=== PATIENT | female | born 1995 | race Caucasian/White ===

== ENCOUNTER 2018-02-12 15:49 | Observation (INO) ==
[2018-02-12 16:25] LABS: Hematocrit 40.8 % (37.0-47.0); Hemoglobin 13.3 gm/dL (12.5-16.0); Mean Cell Volume 90.3 fl (78-100); Mean Corpuscular Hemoglobin 29.4 pg (27-31); Mean Corpuscular Hgb Conc 32.6 g/dl (32-36); Mean Platelet Volume 9.6 fl (8-12.5); Neutrophil # 5.1 K/mm3 (1.3-6.0); Neutrophil % 58.3 % (42-75.0); Platelet Count 282 K/mm3 (150-450); Red Blood Count 4.52 M/mm3 (4.2-5.4); Red Cell Distribution Width 14.4 % (11.5-14.0); White Blood Count 8.7 K/mm3 (4.0-10.5)
[2018-02-12 16:38] LABS: Albumin * 3.8 gm/dl (3.4-5.0); BUN/Creatinine Ratio 9.9 (9.0-21.6); Bilirubin, Total 0.3 mg/dL (0.0-1.1); CRP 1.2 mg/dL (0.0-0.9); Calcium * 9.2 mg/dL (7.9-10.9); Carbon Dioxide 25.6 mmol/L (24-32.6); Potassium 3.6 mmol/L (3.4-4.6); Total Protein 7.8 gm/dL (6.2-8.2)
[2018-02-12 16:59] LABS: Urine Bilirubin Negative (NEGATIVE); Urine Blood 25 /ul (NEGATIVE); Urine Ketone Negative (NEGATIVE); Urine Nitrite Negative (NEGATIVE); Urine Protein Negative (NEGATIVE); Urine Urobilinogen Normal (NORMAL); Urine pH 6.5 pH (5.0-7.0)
--- NOTE | 2018-02-12 17:03 | ERNOTE ---
Abdominal HPI - Narrative Date of Service: 02/12/18 - General Chief Complaint: Abdominal Pain Time Seen by Provider: 02/12/18 16:01 Source: patient Exam Limitations: no limitations - Immun/Allergies/Home Medications Immunizatons: IMMUNIZATION HX Immunizations Up to Date Yes History of Influenza Vaccine No Hx Pneumococcal Vaccination No Allergies/Adverse Reactions: Allergies Penicillins Allergy (Verified 02/12/18 16:06) Home Medications: HOME MEDICATIONS Levonorgestrel [Mirena] 1 ea IY NOW 02/12/18 [Last Taken Unknown] - Pain Score Pain Score #1 Pain Score: 4 Abdominal Pain Onset Location: RUQ Pain Radiation: no radiation - History of Present Illness Narrative: The patient is a 22 year old female who presents for RUQ pain which has been present for 2 days. There are associated symptoms of nausea. The patient reports RUQ pain, 4/10. There are no alleviating factors. There are aggravating factors following eating. Previous treatments have included: none. The past medical history includes: hypothyroid. The social history is negative. The patient has had no ill contacts. Timing: constant Quality: sharpness Activities at Onset: none Modifying Factors - (Worsens): Present: other - bending forward or abdominal pressure Associated Symptoms: Present: nausea. Absent: diarrhea-gross blood, diarrhea- mucous, fatigue, vomiting, loss of appetite Review of Systems - Review of Systems Constitutional: Present: no symptoms reported. Absent: recent illness, fever, fatigue EYE: Present: no symptoms reported ENT: Present: no symptoms reported. Absent: ear pain, nasal drainage, sore throat Respiratory: Present: no symptoms reported. Absent: shortness of breath, cough Cardiology: Present: no symptoms reported. Absent: chest pain Gastrointestinal/Abdominal: Present: nausea, diarrhea, abdominal pain. Absent: vomiting, eating less, drinking less Genitourinary: Present: no symptoms reported. Absent: dysuria, decreased urinary output, discharge Musculoskeletal: Present: no symptoms reported. Absent: back pain Skin: Present: no symptoms reported. Absent: rash Neurological: Present: no symptoms reported Endocrine: Present: no symptoms reported Hematologic/Lymphatic: Present: no symptoms reported Psych: Present: no symptoms reported All Other Systems: All systems neg except as marked Medical History (Last Reviewed 02/12/18 @ 17:06 by TIAGO Chapman) Hypothyroid Surgical History: Surgical History (Last Reviewed 02/12/18 @ 17:06 by TIAGO Chapman) ear tubes Family History: Family History (Last Reviewed 02/12/18 @ 17:06 by TIAGO Chapman) Other No pertinent family history Social History: Preferred Language Yoruba Smoking Status Never smoker Alcohol Use occasionally Drug Use none No Social History Section defined Physical Exam - Physical Exam General Appearance: Present: wd/wn, alert, no apparent distress Head Exam: Present: normal inspection Respiratory: Present: no respiratory distress, normal breath sounds, no accessory muscle use, chest nontender, lungs clear Cardiovascular/Chest: Present: regular rate, rhythm, no murmur Gastrointestinal/Abdominal: Present: normal bowel sounds, nondistended, soft, no organomegaly, tenderness - RUQ, guarding, rebound, McBurney sign Neurological Exam: Present: alert, oriented, normal mood/affect Skin Exam: Present: normal color, warm/dry Progress - Date and Time Seen: Date and Time: 02/12/18 Discussed case with , will present to evaluate patient for plan of care. present and plan for cholecystectomy this evening. - Results and Orders Patient's Lab Results:: I have reviewed the patient's lab results. Results and Orders: Will follow up with patient regarding urine culture to initiate treatment since patient asymptomatic, discussed this with patient and agrees to plan. - Vital Signs Patient's Vital Signs:: I have reviewed the patient's vital signs. Vital Signs: Vital Signs 02/12/18 15:50 Temperature 36.4 C Pulse Rate 66 Respiratory Rate 16 Blood Pressure 126/74 O2 Sat by Pulse Oximetry 98 - X-Ray X-Ray #1 X-Ray: abdomen Interpretation: Reviewed by il X-ray Comments: X-RAY REPORT ~[id number] RAD/Abdomen Flat W/ Upright *~ Exam Date: 02/12/2018 16:05 Ordering Physician: Flori ORDOÑEZ Abdomen Flat W/ Upright * DATE: 02/12/2018 5:50 PM INDICATION: Abdominal Pain. COMPARISON: None. TECHNIQUE: Supine and upright views of the abdomen were obtained. FINDINGS: Abdomen: Nonobstructive bowel gas pattern. No free air. There is an intrauterine device in the pelvis. Lower Chest: The visualized lower chest demonstrates no acute abnormality. Skeletal Structures and Soft Tissues: No acute osseous abnormality. Normal soft tissues. IMPRESSION: Nonobstructive bowel gas pattern. Electronically signed by Tonia Boykin D.O.. - CT/Ultrasound CT/Ultrasound Narrative: X-RAY REPORT ~[id number] ULT/US Abd Single Organ (Limited)~ Exam Date: 02/12/2018 17:03 Ordering Physician: Flori Zepeda NURSING HOME AIDE History: Right upper quadrant pain, nausea and vomiting for one day Technique: Multiple transabdominal grayscale, color ultrasound images of the abdomen limited to the gallbladder and the common ducts were obtained. Comparisons: None available. Findings: ULTRASOUND ABDOMEN LIMITED: Gallbladder: Gallbladder wall thickness is 0.5 mm. Cholelithiasis. The gallbladder wall appears thickened and ill-defined. There is some pericholecystic fluid. The sonographic Estrada's sign was elicited. Common hepatic duct: 4 mm Common bile duct: 4 mm Distal common bile duct: 4 mm The visualized surrounding structures are unremarkable. IMPRESSION: Findings suggestive of acute cholecystitis with gallbladder wall thickening, pericholecystic fluid, cholelithiasis and a positive sonographic Estrada sign. Electronically signed by Tonia Boykin D.O.. - Progress/Reassessment Chief Complaint: Abdominal Pain Departure Clinical Impression: Cholecystitis - Departure Disposition: Still a patient Condition: Good
[2018-02-12 17:12] LABS: Urine Appearance Slightly Cloudy (CLEAR); Urine Color Yellow
[2018-02-12 17:13] LABS: Urine Bacteria TRACE; Urine RBC TRACE /hpf (0-5)
--- NOTE | 2018-02-12 18:42 | HP ---
Chief Complaint - Chief Complaint Date of Service: 02/12/18 Time of Service: 18:36 Chief Complaint: Right upper quadrant pain History of Present Illness: She complains of right upper quadrant pain. This pain began yesterday. She tried making herself throw up today, but did not find relief. She tried eating to cheeseburgers at noon today, but that did not help her pain. She has also had acid reflux. She has a 4-month-old baby. She has pain in the right upper quadrant. Medical History (Last Reviewed 02/12/18 @ 17:06 by TIAGO Chapman) Hypothyroid Surgical History: Surgical History (Last Reviewed 02/12/18 @ 17:06 by TIAGO Chapman) ear tubes Family History: Family History (Last Reviewed 02/12/18 @ 17:06 by TIAGO Chapman) Other No pertinent family history Social History: Preferred Language [place] Smoking Status Never smoker Alcohol Use occasionally Drug Use none No Social History Section defined Review Of Systems (GEN) - Review of Systems Generalized/Overall Review: Present: Malaise EENTM: Present: No Symptoms Reported Respiratory: Present: No Symptoms Reported Cardiac: Present: No Symptoms Reported Abdominal: Present: Nausea, Vomiting, Abdominal Pain Genitourinary: Present: No Symptoms Reported Musculoskeletal: Present: No Symptoms Reported Neurological: Present: No Symptoms Reported Skin: Present: No Symptoms Reported Endocrine: Present: Other - Breast-feeding Immunizations: IMMUNIZATION HX Immunizations Up to Date Yes History of Influenza Vaccine No Hx Pneumococcal Vaccination No Allergies/Adverse Reactions: Allergies Allergy/AdvReac Type Severity Reaction Status Date / Time Penicillins Allergy Verified 02/12/18 16:06 Home Medications: HOME MEDICATIONS Levonorgestrel [Mirena] 1 ea IY NOW 02/12/18 [Last Taken Unknown] Exam - Exam Vital Signs: Vital Signs - Last Taken Temp 36.4 C 02/12/18 15:50 Pulse 66 02/12/18 15:50 Resp 16 02/12/18 15:50 BP 126/74 02/12/18 15:50 Pulse Ox 98 02/12/18 15:50 Constitutional: Present: Alert, Oriented x3, Cooperative Breasts: Present: Other - Breast-feeding Respiratory: Present: lungs clear, no accessory muscle use Cardiovascular/Chest: Present: normal peripheral pulses, regular rate, rhythm Abdomen: Present: Normal bowel sounds, obese, tender, guarding, positive Estrada sign Extremity: Present: normal range of motion Skin Exam: Present: normal color Neurologic: Present: rack washer II-XII nml as tested Appearance: Present: appropriate appearance Eye contact: Present: cooperative Thoughts: Present: normal thought pattern Diagnostic Studies: Abnormal Lab Results 18 1818 1818 Range/Units 16:18 16:18 16:45 RDW 14.4 H (11.5-14.0) % Anion Gap 15.0 H (6.8-13.8) mmol/L C-Reactive Prot, Quant 1.2 H (0.0-0.9) mg/dL Urine Blood 25 H (NEGATIVE) /ul Ur Leukocyte Esterase 75 H (NEGATIVE) /ul Urine WBC 10-25 H (0-5) /hpf Ur Epithelial Cells 5-10 H (0-5) /hpf Laboratory Results WBC 8.7 K/mm3 (4.0-10.5) 02/12/18 16:18 RBC 4.52 M/mm3 (4.2-5.4) 02/12/18 16:18 Hgb 13.3 gm/dL (12.5-16.0) 02/12/18 16:18 Hct 40.8 % (37.0-47.0) 02/12/18 16:18 MCV 90.3 fl (78-100) 02/12/18 16:18 MCH 29.4 pg (27-31) 02/12/18 16:18 MCHC 32.6 g/dl (32-36) 02/12/18 16:18 RDW 14.4 % (11.5-14.0) H 18 16:18 Plt Count 282 K/mm3 (150-450) 18 16:18 MPV 9.6 fl (8-12.5) 18 16:18 Immature Gran % (Auto) 0.10 % (0.001-0.429) 18 16:18 Immature Gran # (Auto) 0.01 K/mm3 (0.000-0.0310) 02/12/18 16:18 Neutrophils % 58.3 % (42-75.0) 18 16:18 Lymphocytes % 31.0 % (20-51) 02/12/18 16:18 Monocytes % 8.3 % (0.0-9) 02/12/18 16:18 Eosinophils % 1.8 % (0.0-3.0) 02/12/18 16:18 Basophils % 0.5 % (0.0-1.0) 02/12/18 16:18 Nucleated RBC % 0.0 k/mm3 (0-1) 02/12/18 16:18 Neutrophils # 5.1 K/mm3 (1.3-6.0) 02/12/18 16:18 Lymphocytes # 2.70 k/mm3 (1.5-3.5) 02/12/18 16:18 Monocytes # 0.7 k/mm3 (0.0-1.0) 02/12/18 16:18 Eosinophils # 0.2 k/mm3 (0.0-0.7) 02/12/18 16:18 Absolute Basophils 0.0 k/mm3 (0.0-0.1) 02/12/18 16:18 Sodium 142 mmol/L (132-142) 02/12/18 16:18 Plasma Sodium 142 mmol/L (130-142) 02/12/18 16:18 Potassium 3.6 mmol/L (3.4-4.6) 02/12/18 16:18 Chloride 105 mmol/L (97-106) 02/12/18 16:18 Carbon Dioxide 25.6 mmol/L (24-32.6) 02/12/18 16:18 Anion Gap 15.0 mmol/L (6.8-13.8) H 02/12/18 16:18 BUN 11 mg/dL (3-23) 02/12/18 16:18 Creatinine 1.11 mg/dL (0.4-1.4) 02/12/18 16:18 Est GFR (Non-Af Amer) 65 mL/min (60-130) 02/12/18 16:18 BUN/Creatinine Ratio 9.9 (9.0-21.6) 02/12/18 16:18 Random Glucose 102 mg/dL (70-110) 02/12/18 16:18 Calcium 9.2 mg/dL (7.9-10.9) 02/12/18 16:18 Calcium Adj for Albumin 9.0 mg/dL (8.4-10.2) 18 16:18 Total Bilirubin 0.3 mg/dL (0.0-1.1) 18 16:18 AST 32 U/L (0-48) 18 16:18 ALT 48 U/L (19-67) 02/12/18 16:18 Alkaline Phosphatase 75 U/L (50-170) 02/12/18 16:18 C-Reactive Prot, Quant 1.2 mg/dL (0.0-0.9) H 02/12/18 16:18 Total Protein 7.8 gm/dL (6.2-8.2) 02/12/18 16:18 Albumin 3.8 gm/dl (3.4-5.0) 02/12/18 16:18 Amylase 63 U/L (25-115) 02/12/18 16:18 Lipase 140 U/L (73-393) 02/12/18 16:18 Serum HCG, Qual Negative (NEGATIVE) 02/12/18 16:18 Urine Color Yellow 02/12/18 16:45 Urine Appearance Slightly cloudy (CLEAR) 02/12/18 16:45 Urine pH 6.5 pH (5.0-7.0) 02/12/18 16:45 Ur Specific [place] 1.020 SP.GR. (1.005-1.010) 02/12/18 16:45 Urine Protein Negative mg/dL (NEGATIVE) 02/12/18 16:45 Urine Glucose (UA) Negative mg/dL (NEGATIVE) 02/12/18 16:45 Urine Ketones Negative mg/dL (NEGATIVE) 02/12/18 16:45 Urine Blood 25 /ul (NEGATIVE) H 18 16:45 Urine Nitrate Negative (NEGATIVE) 02/12/18 16:45 Urine Bilirubin Negative mg/dl (NEGATIVE) 02/12/18 16:45 Urine Urobilinogen Normal EU/dl (NORMAL) 02/12/18 16:45 Ur Leukocyte Esterase 75 /ul (NEGATIVE) H 18 16:45 Urine RBC Trace /hpf (0-5) 1218 16:45 Urine WBC 10-25 /hpf (0-5) H 02/12/18 16:45 Ur Epithelial Cells 5-10 /hpf (0-5) H 02/12/18 16:45 Urine Bacteria Trace (NONE) 02/12/18 16:45 Urine Culture Comments Culture to follow 12 16:45 Assessment/Plan - Narrative Narrative: We'll plan to go to the OR for laparoscopic possible open appendectomy. Risks and benefits of the procedure were discussed with the patient including bleeding, infection, damage to the common bile duct, bile leak, and need for reoperation. She voices understanding and would like to proceed. She is also breast-feeding. We discussed that there is a slight risk of transfer of medication from surgery to the . The patient states that once she breast beats tonight the baby will likely sleep all night. The baby has had formula couple of times. The patient does not pump. She does not have any stored breastmilk. Thank you for allow me to participate in the care of your patient. - Assessment/Plan (1) Acute cholecystitis Assessment: We will plan to go to the operating room for acute cholecystitis. She has a positive Estrada's sign. As an elevated CRP. Her gallbladder wall is thickened, she has cholelithiasis, and pericholecystic fluid. Problem: Acute (2) Breast feeding status of mother Problem: Acute
--- NOTE | 2018-02-12 18:47 | OR ---
Operative Report - Dictated Report Narrative: Procedure Date: 02/12/18 Procedure: laparoscopic cholecystectomy Pre-procedure diagnosis: Acute Cholecystitis Post-procedure diagnosis: same Surgeon: Dr. Martha Barron Anesthesia: general Indication for procedure: Sharon is a pleasant 22 year old female who was found to have acute seymour, on US. She also has a positive Estrada's sign. Description of procedure: After appropriate informed consent was obtained patient was taken to the operating room, placed in the supine position. General anesthesia was achieved. The patient was prepped and draped in the usual sterile fashion. A 5 mm periumbilical incision was made, hemostat was used to dissect down to the fascia. A Veress needle was inserted, a saline drop test was performed which was satisfactory. The abdomen was insufflated to 15 mmHg. A 5mm blunt trocar was placed at the umbilicus. The camera was inserted, there was no evidence of a trocar injury. An 11 mm trocar was placed in subxiphoid position. A 5 mm trocar was placed in the right upper quadrant. An additional 5 mm trocar was placed in the right upper lateral quadrant The patient was placed in a head up, rotated left position, to facilitate exposure. The gallbladder was identified, and was elevated over the liver. It was consistent with acute seymour. The cystic duct was identified and was dissected out, this was directly entering the gallbladder. The cystic artery was not identified, it was clipped along with the cystic duct. There were 3 clips placed on the stay side of the cystic duct, 1 clip was placed on the gallbladder side, the cystic duct was then transected. The gallbladder was then removed from the liver bed using electrocautery. As this was done a small hole was made and bile was spilled, no stones were spilled. The gallbladder was placed in an Endo Catch bag, and removed through the subxiphoid port. The liver was inspected and hemostasis was achieved. The area over the liver was irrigated until clear. The remainder of the abdomen was inspected and was satisfactory. The xiphoid trocar site was closed with an 0 Vicryl suture using a Maxim-Odell device. The abdomen was desufflated. Local anesthetic was injected. The incisions were closed with inverted interrupted 4-0 Monocryl sutures. Mastisol and Steri- Strips were applied. The patient tolerated the procedure well and was transported to the PACU in satisfactory condition. Estimated blood loss: minimal Complications: none Specimens to pathology: Gallbladder Disposition: Pt will be admitted for observation
[2018-02-12] MEDS ORDERED: metroNIDAZOLE/SODIUM CHLORIDE 500 MG/100 ML BAG IV ONE (18:55)
--- NOTE | 2018-02-12 18:59 | ANES ---
Anesthesia Pre Procedure Eval Vitals/Labs: Last Vital Signs Temp 36.4 C 02/12/18 15:50 Pulse 66 02/12/18 15:50 Resp 16 02/12/18 15:50 BP 126/74 02/12/18 15:50 Pulse Ox 98 02/12/18 15:50 HOME MEDICATIONS Levonorgestrel [Mirena] 1 ea IY NOW 02/12/18 [Last Taken Unknown] Allergies/Adverse Reactions: Allergies Allergy/AdvReac Type Severity Reaction Status Date / Time Penicillins Allergy Verified 02/12/18 16:06 - Planned Procedure Planned Procedure: LAPAROSCOPIC CHOLECYSTECTOMY Medication List Reviewed:: Yes Allergies Verified: Yes Medical History (Last Updated 02/12/18 @ 18:58 by Niall Wise CRNA) Hypothyroid Morbid obesity Surgical History (Last Reviewed 02/12/18 @ 18:58 by Niall Wise CRNA) ear tubes Family History (Last Reviewed 02/12/18 @ 18:58 by Niall Wise CRNA) Grandmother No pertinent family history Other Ovarian cancer - Airway/Neck/Teeth Within Normal Limits:: Yes Teeth Condition: intact Mallampatti Score: 3 Thyromental (T-M) distance: > 6 cm Mandibulo Hyoid distance: > 3 cm - Respiratory Respiratory Physical: lungs clear Smoking Status: Never smoker Discussed smoking cessation including day of surgery: No Sleep Apnea currently treated: No Sleep Apnea by current assessment: Yes Discussed Risks/Treatment of MIRIAM: Yes - Cardiovascular Tolerate Activity: Good Heart Sounds: S1 & S2 - Anesthesia Assessment and Plan ASA Class: PS, II, E Anesthesia Type Plan: General ET Planned difficult intubation/equipment available: Yes
[2018-02-12] MEDS ORDERED: LEVOFLOXACIN IN DEXTROSE 5 % 500 MG/100 ML BAG IV SCH (19:00)
[2018-02-12] MEDS ORDERED: RINGER'S SOLUTION,LACTATED 1,000 ML IV STA (19:15)
[2018-02-12] MEDS ORDERED: BUPIVACAINE HCL/PF 30 ML VIAL IJ ONE (19:50)
[2018-02-12] MEDS ORDERED: ACETAMINOPHEN 325 MG TABLET PO PRN (20:47)
[2018-02-12] MEDS ORDERED: ONDANSETRON HCL/PF 2 MG/ML VIAL IV PRN (20:47)
[2018-02-12] MEDS ORDERED: POTASSIUM CHLORIDE 20 MEQ in DEXTROSE 5%-0.5 NORMAL SALINE 990 ML IV SCH (21:00)
--- NOTE | 2018-02-12 21:04 | ANES ---
Post Anesthesia Assessment - Vital Signs Vitals: Last Vital Signs Temp 37.8 C 02/12/18 19:08 Pulse 72 02/12/18 19:08 Resp 18 02/12/18 19:08 BP 139/95 H 02/12/18 19:08 Pulse Ox 98 02/12/18 19:08 Airway Patency: Normal - Mental Status Level Of Consciousness: Awake - Pain Level Pain Score: 0 - N/V Assessment Nausea/Vomiting Presence: None Dehydration:: No
--- NOTE | 2018-02-12 21:04 | ANES ---
Post Anesthesia Discharge - Transfer of Care Transfer of Care handoff given to nurse: Yes - Discharge from PACU Discharge from PACU when meets criteria: Yes - Discharge to ASU Discharge to ASU-no complications/pt stable: Yes
[2018-02-12] MEDS: HYDROcodone/ACETAMINOPHEN 1 EACH TABLET PO PRN (22:36)
--- NOTE | 2018-02-13 13:21 | DS ---
(1) Acute cholecystitis Problem: Acute (2) Breast feeding status of mother Problem: Acute Description of Stay: Sharon is a very pleasant 22 yo female, who came in through the ER last night. She had RUQ pain, and an US that showed acute cholecystitis. She was taken to the operating room for laparoscopic Cholestectomy. This was uneventful. She did well over 90 pain is controlled. She has tolerated a diet. She has breast- feeding and she is currently used in the breast pump. Procedures Performed: see notes below List Procedures: Cholecystectomy Results and Findings: Pending Mircobiology Results 02/12/18 16:45 Urine,Voided Urine Culture - Preliminary No Growth Lab Pending Results 02/12/18 16:18: WBC 8.7, RBC 4.52, Hgb 13.3, Hct 40.8, MCV 90.3, MCH 29.4, MCHC 32.6, RDW 14.4 H, Plt Count 282, MPV 9.6, Immature Gran % (Auto) 0.10, Immature Gran # (Auto) 0.01, Neutrophils % 58.3, Lymphocytes % 31.0, Monocytes % 8.3, Eosinophils % 1.8, Basophils % 0.5, Nucleated RBC % 0.0, Neutrophils # 5.1, Lymphocytes # 2.70, Monocytes # 0.7, Eosinophils # 0.2, Absolute Basophils 0.0 02/12/18 16:18: Sodium 142, Plasma Sodium 142, Potassium 3.6, Chloride 105, Carbon Dioxide 25.6, Anion Gap 15.0 H, BUN 11, Creatinine 1.11, Est GFR (Non-Af Amer) 65, BUN/Creatinine Ratio 9.9, Random Glucose 102, Calcium 9.2, Calcium Adj for Albumin 9.0, Total Bilirubin 0.3, AST 32, ALT 48, Alkaline Phosphatase 75, C-Reactive Prot, Quant 1.2 H, Total Protein 7.8, Albumin 3.8, Amylase 63, Lipase 140 02/12/18 16:18: Serum HCG, Qual Negative 02/12/18 16:45: Urine Color Yellow, Urine Appearance Slightly cloudy, Urine pH 6.5, Ur Specific [place] 1.020, Urine Protein Negative, Urine Glucose (UA) Negative, Urine Ketones Negative, Urine Blood 25 H, Urine Nitrate Negative, Urine Bilirubin Negative, Urine Urobilinogen Normal, Ur Leukocyte Esterase 75 H, Urine RBC Trace, Urine WBC 10-25 H, Ur Epithelial Cells 5-10 H, Urine Bacteria Trace, Urine Culture Comments Culture to follow 02/12/18 20:44: Pathology Specimen Spec to path Discharge Location: Home Disposition: Home self-care Condition: Good Face to Face Encounter completed per [facility] Guidelines: No Discharge Activity: Activity as tolerated Discharge Diet: General/regular food Referrals: Madhav Avila MD [Primary Care Provider] - Additional Patient Instructions (free text): Follow-up with Dr. Barron in 2 weeks Complete Home Medications List: Complete Home Medication List: Levonorgestrel [Mirena] 1 ea IY NOW 02/12/18
[2018-02-13] MEDS: HYDROcodone/ACETAMINOPHEN 1 EACH TABLET PO PRN (13:37)
[2018-02-13 14:46] VITALS: BP 122/68
== END 2018-02-13 15:17 | disposition home or self-care (01) ==
LOC: ER 15:49 → MS 18:44 → AMB 18:44
PROVIDERS: ADMIT Surgery; ATTEND Surgery
DX: K81.0 Acute cholecystitis
CPT/HCPCS: 36415; 74019; 74020; 76705; 80053; 81001; 82150; 83690; 84703; 85025; 86140; 87086; 88304; 96365; 96366; 99285; G0378